=== PATIENT | male | born 1950 | race Caucasian/White ===

== ENCOUNTER → 2018-03-23 10:48 | Outpatient (CLI) | payer OTHER, SELFPAY ==
[2018-03-23 12:31] LABS: Add Manual Diff / Slide Review NO; Basophils Percent Auto 1.8 % (0-2); Eosinophils Percent Auto 2.4 % (2-4); Hematocrit 41.3 % (41-53); Lymphocytes Percent Auto 33.2 % (25-40); Mean Corpuscular Volume 91.3 fL (80-100); Monocytes Percent Auto 8.9 % (3-14); Neutrophils Absolute Auto 2600 /uL (3000-5900); Neutrophils Percent Auto 53.7 % (50-75); Platelet Count 234 X10^3/uL (150-400); Red Blood Cell Count 4.53 X10^6/uL (4.5-5.9); Red Cell Distribution Width 13.5 % (11.6-14.8); White Blood Cell Count 4.8 X10^3/uL (4.5-11.0)
[2018-03-23 12:55] LABS: Alanine Aminotransferase 22 IU/L (21-72); Albumin 4.1 g/dL (3.5-5.0); Albumin Globulin Ratio 1.4 (1.0-2.8); Alkaline Phosphatase 73 U/L (38-126); Aspartate Aminotransferase 25 IU/L (17-59); BUN Creatinine Ratio 15.6 (6-22); Bilirubin Total 0.8 mg/dL (0.2-1.3); Blood Urea Nitrogen 14 mg/dL (9-20); Calcium 8.8 mg/dL (8.4-10.2); Carbon Dioxide 30 mmol/L (22-32); Chloride 104 mmol/L (98-107); Cholesterol 192 mg/dL (140-199); Estimated Glomerular Filt Rate > 60.0 mL/min (>60); Globulin 2.9 g/dL (1.7-4.1); Glucose 89 mg/dL (80-110); HDL Cholesterol 54 mg/dL (40-60); HEMOLYSIS < 15 (0-50); LDL Cholesterol Calculated 110 mg/dL (<100); Potassium 4.2 mmol/L (3.4-5.1); Sodium 140 mmol/L (137-145); Triglycerides 139 mg/dL (35-150)
[2018-03-23 13:28] LABS: Thyroid Stimulating Hormone 2.52 uIU/mL (0.47-4.68)
== END ==
PROVIDERS: PCP Internal Medicine; Visit Provider Internal Medicine
DX: E78.5 Hyperlipidemia, unspecified (principal)
CPT/HCPCS: 36415; 80053; 80061; 84443; 85025

== ENCOUNTER → 2018-12-10 08:56 | Outpatient (CLI) | payer OTHER, SELFPAY ==
[2018-12-12 14:06] LABS: ANA Screen, IFA Negative (Negative)
== END ==
PROVIDERS: Family Provider Student in an Organized Health Care Education/Training Program; PCP Student in an Organized Health Care Education/Training Program; Visit Provider Physician Assistant
DX: R21 Rash and other nonspecific skin eruption (principal)
CPT/HCPCS: 36415; 86038

== ENCOUNTER → 2020-05-15 13:24 | Outpatient (CLI) | payer OTHER, SELFPAY ==
[2020-05-16 19:19] LABS: COVID19 Sendout Not Detected (Not Detect)
== END ==
PROVIDERS: PCP Student in an Organized Health Care Education/Training Program; Visit Provider Physician Assistant
DX: Z11.59 Encounter for screening for other viral diseases (principal)
CPT/HCPCS: 87635

== ENCOUNTER 2020-05-18 09:28 | Day surgery (SDC) | payer OTHER, SELFPAY ==
--- NOTE | 2020-05-18 | PATH_ITS ---
[facility] Accession Number: [id number] . 01 Material submitted: . colon - POLYP AT 70 CM . 01 Clinical history: . SDC . 02 Diagnosis: Colon Polyp at 70 cm, Biopsy: Tubular adenoma. MRV 05/22/2020 1111 Local . 02 Electronically signed: . Jean Pierre Farrell MD, PhD, Pathologist NPI- [id number] . 01 Gross description: . POLYP AT 70 CM: Received in formalin is 1 fragment(s) of monae, soft tissue measuring 0.4 x 0.3 x 0.3 cm submitted entirely in 1 cassette(s) /IRA 05/21/2020 1934 Local . 02 Pathologist provided ICD-10: D12.6 . 02 CPT . 039758 Performed at: 01 [facility] [address] [id number] MD Dougie Reza MD Phone: [phone] Performed at: 02 [facility] [address] [place], [place] [id number] MD Malissa Suarez MD Phone: [phone]
[2020-05-18 09:48] VITALS: BP 136/66; PULSE 60; RESP 16; TEMP 36.2; O2SAT 99; BMI 28.1
[2020-05-18] MEDS: SODIUM CHLORIDE 0.9% 1,000 ML 200 ML IV (09:56)
--- NOTE | 2020-05-18 10:05 | PM.HP.1 ---
History of Present Illness History of Present Illness Date Patient Seen: 05/18/20 Time Patient Seen: 10:05 Chief complaint: SDC Narrative: This is a 69-year-old man here for surveillance colonoscopy. He had a colonoscopy 6 years ago in which a tubular adenoma was found, he was recommended to have a follow-up colonoscopy 5 years later. Since then he has not had any new symptoms of blood in the stool, melena, hematochezia, unexplained abdominal pain, unexplained weight loss. He did recently have a prostatectomy performed robotically for prostate cancer. He says he has recovered well from that and has no residual symptoms or concerns. He says he is overall very healthy, and is have any heart lung or kidney condition. ROS: Positive for GERD/reflux symptoms. Thirteen system review is otherwise negative other than as mentioned below and in HPI. PE: GENERAL: Well groomed and cooperative. Appears stated age. Answers questions promptly and appropriately. Vital signs noted. HENT: Normocephalic, atraumatic. Hearing intact. EYES: Conjunctiva pink, sclera white, no periorbital swelling. CARDIOVASCULAR: Regular rate. No pedal edema. RESPIRATORY: Non-tachypneic, breathing comfortably on room air. GASTROINTESTINAL: Abdomen soft and non-distended GENITALURINARY: No flank tenderness. MUSCULOSKELETAL: Equal tone and mass bilaterally. SKIN: Warm, dry, soft, appropriate color for ethnicity. No other lesions, rashes, or wounds. NEURO: Alert and Oriented X 3. No gross sensory deficits, or cognitive issues. PSYCH: Appropriate affect and mood. Patient History Medical History Chicken pox (Resolved ~1955) Elevated PSA (Chronic) Measles (Resolved ~1955) Musculoskeletal pain (Chronic) Pityriasis rubra pilaris (Chronic) Skin cancer (Chronic) Surgical History Anesthesia (Resolved) Status post cholecystectomy (~1984) Status post hernia repair (~2014) Status post tonsillectomy and adenoidectomy (~1955) Family & Social History Family History Mother Cancer Sister Age: 65 Bladder cancer Sister Age: 70 Autoimmune disorder Social History: household members spouse Tobacco & Substance use: Tobacco type cigarettes,pipe Smoking Status Former smoker alcohol intake current alcohol intake frequency 0-2 drinks per day Substance Use Type does not use Meds Home Medications and Allergies Home Medications Medication Instructions Recorded Confirmed Type No Known Home Medications 05/18/20 05/18/20 History Allergies Allergy/AdvReac Type Severity Reaction Status Date / Time bee venom protein (honey bee) Allergy Mild Swelling Verified 05/18/20 09:44 No Known Allergies Allergy Uncoded 05/18/20 09:44 Exam Vital Signs (past 8 hours): - 05/18/20 09:48 Temperature 97.2 F L Pulse Rate 60 Respiratory Rate 16 Blood Pressure 136/66 Pulse Oximetry 99 Oxygen Delivery Method Room Air Assessment & Plan Assessment and plan (1) Personal history of colonic polyps: Status: Acute Assessment & Plan narrative: Risks and benefits of screening colonoscopy and possible polypectomy were discussed with the patient including risk of bleeding, perforation, need for additional procedures, risks of anesthesia. The patient desires to proceed with the colonoscopy procedure. COVID-19 COVID-19 status: Negative Result date/Date tested (Pos, Neg/Pending): 05/15/20 Time Spent With Patient Time with patient: 15-24 minutes Quality VTE Deep Vein Thrombosis/Pulmonary Embolism Present on Admission: No
--- NOTE | 2020-05-18 10:07 | P.OP.ENDO_ITS ---
Operative Date/Time/Diagnoses Date of procedure: 05/18/20 Time of procedure: 10:07 Pre-op diagnosis: Personal history of colon polyps Post-op diagnosis: other (Single polyp at 70 cm) Procedure & Clinicians Study performed: Colonoscopy Polypectomy with cold snare Procedural sedation performed by the endoscopist Same procedure as scheduled: Yes Indications: Personal history of colon polyps, here for surveillance colonoscopy Surgeon: Miryam Dominguez Procedure Notes SCOAP/Timeout: Performed Procedure in detail: The patient was brought to the room and placed in left lateral decubitus position with all bony prominences padded. A time-out was performed and then the patient was given procedural sedation starting with 4 mg of Versed and 100 mcg of fentanyl. Total of 6 mg of Versed and 150 micro g of fentanyl were given for the entire procedure. Vitals were monitored throughout the procedure and remained stable. Once adequately sedated, the procedure was begun. A rectal exam was performed revealing no abnormalities. The colonoscope was then introduced to the rectum and advanced to the cecum in the usual fashion. The cecum was identified by the appendiceal orifice, the mucosal tri- fold, and the ileocecal valve. The scope was then retracted while rotating side to side and examining each mucosal fold. A 1 cm polyp was found at 70 cm in the ascending colon. It was removed completely with cold snare, and retrieved for pathology. At the conclusion of the procedure retroflexion was performed and small grade 1-2 internal hemorrhoids without stigmata of bleeding were seen. The scope was then withdrawn from the rectum the procedure was concluded. The patient tolerated the procedure well and was transferred to the PACU in stable condition. Scope withdrawal time: 11 Sedation minutes: 30 Findings: polyp (Single adenomatous appearing polyp at 70 cm) Specimen(s): other (Polyp) Complications: none Impression: Single adenomatous appearing polyp Post-procedure Recommendations: Colonscopy in 5 years (Two 2 history of polyps, and new polyp found on this colonoscopy) and Other recommendation (Pending pathology results) Follow up: as needed Disposition: PACU
[2020-05-18] MEDS: fentaNYL 250 MCG/5 ML INJ IV (10:31)
[2020-05-18] MEDS: MIDAZOLAM 5 MG/5 ML VIAL IV (10:33)
[2020-05-18 11:01] VITALS: BP 105/55; PULSE 63; RESP 12; TEMP 36.3; O2SAT 96
[2020-05-18 11:06] VITALS: BP 103/62; PULSE 59; RESP 16; O2SAT 96
[2020-05-18 11:12] VITALS: BP 119/59; PULSE 62; RESP 12; O2SAT 97
[2020-05-18 11:15] VITALS: BP 108/64; PULSE 64; RESP 12; O2SAT 96
== END 2020-05-18 11:24 | disposition home or self-care (01) ==
PROVIDERS: PCP Student in an Organized Health Care Education/Training Program; Referring Provider Surgery; Visit Provider Surgery
PROC: 0DJD8ZZ Inspection of Lower Intestinal Tract, Via Natural or Artificial Opening Endoscopic (ICD-10-PCS; CPT 45378; principal; 2020-05-18 10:45)
DX: Z12.11 Encounter for screening for malignant neoplasm of colon (principal); Z86.010 Personal history of colon polyps; K64.0 First degree hemorrhoids; D12.6 Benign neoplasm of colon, unspecified
CPT/HCPCS: 45385; 99152; 99153; J2250; J3010

== ENCOUNTER → 2020-09-29 08:32 | Outpatient (CLI) | payer OTHER, SELFPAY ==
[2020-09-29 09:18] LABS: COVID19 -Nasal RAPID Negative (Negative)
== END ==
PROVIDERS: PCP Student in an Organized Health Care Education/Training Program; Visit Provider Physician Assistant
DX: Z20.822 Contact with and (suspected) exposure to COVID-19 (principal)
CPT/HCPCS: 87635

== ENCOUNTER 2020-10-02 11:19 | Day surgery (SDC) | payer OTHER, SELFPAY ==
[2020-10-02] MEDS: CATARACT EYE COMPOUND (10 DROPS/SYRINGE) 3 DROPS EYE-OP (11:42)
[2020-10-02] MEDS: PROPARACAINE 0.5% OPHTH SOL 2 DROPS EYE-OP (11:42)
--- NOTE | 2020-10-02 11:54 | P.OP_ITS ---
Operative Date/Time/Diagnoses Pre-op diagnosis: Nuclear Cataract Left eye Post-op diagnosis: same Procedure & Clinicians Same procedure as scheduled: Yes Surgeon: Noe Solis Anesthesia Type: MAC +/- and Sedation Operative Notes Procedure in detail: Patient brought to the operating suite. Tetracaine drops placed in the left eye. Marking instrument was used to adeline the vertical and horizontal meridians. Patient was prepped and draped in sterile manner. Wire lid speculum was placed in the eye. Marking instrument was used to adeline 60 degree meridian. Betadine drops were placed on the eye. This was irrigated. Lidocaine jelly was placed on the eye. A paracentesis port was created with a side-port blade. 0.1 mL 1% preservative free lidocaine was injected into the anterior chamber. The anterior chamber was deepened with viscoelastic. 2.6 mm keratome was used to create a temporal clear corneal incision. The pupil was floppy and miotic. A 6.25 mm malyugin ring was used to enlarge the pupil. Cystotome and Utrata forceps were used to create continuous tear capsulorrhexis. Balanced salt solution was used to hydro dissect the nucleus. The phacoemulsi fication handpiece was inserted and the nucleus was removed using the stop and chop technique. The irrigation aspiration handpiece was inserted and the remaining cortex was removed. Anterior chamber was deepened with viscoelastic. An Hatfield [id number] intraocular lens with a power of 18.0 was injected into the capsular bag. The malyugin ring was removed. Irrigation aspiration handpiece was inserted and the remaining viscoelastic was removed. The lens was rotated to the 60 degree meridian. Incision was hydrated with balanced salt solution and found to be leak free with pressure with Weck-Claudia sponges. 0.1 mL Vigamox injected anterior chamber. 0.3 mL Kenalog 10 mg was injected subconjunctivally. Lid speculum was removed. The patient left the operating room in excellent condition. Complications: none Post-operative Condition: stable Disposition: same day surgery
--- NOTE | 2020-10-02 11:54 | PM.PREOP ---
Pre-operative Note Interval Note History & Physical reviewed/Exam performed by Physician: Yes Changes to H&P: No
[2020-10-02] MEDS: PHENYLEPHRINE/LIDOCAINE VIAL (OR) 0.2 ML EYE-OP (12:12)
[2020-10-02] MEDS: MOXIFLOXACIN INJ 5 MG/ML VIAL EYE-OP (12:12)
[2020-10-02] MEDS: TRIAMCINOLONE 50 MG/5 ML VIAL INJ (12:13)
[2020-10-02] MEDS: BALANCED SALT IRRIG SOLN NO.2 500 ML, EPINEPHrine 1 MG IRR (12:13)
[2020-10-02] MEDS: CHONDROIDTIN/SOD HYALURONATE 1.05 ML SYRINGE INTRAOCULA (12:13)
[2020-10-02] MEDS: LIDOCAINE JELLY 2% 5 ML 1 APPLIC TOP (12:14)
[2020-10-02] MEDS: TETRACAINE 0.5% OPHTH DROPS 4 ML 2 DROPS EYE-OP (12:15)
[2020-10-02 12:34] VITALS: BP 113/69; PULSE 63; RESP 16; TEMP 36.3; O2SAT 98
--- NOTE | 2020-10-02 12:50 | SUR.PHASEII ---
Pt has met criteria for discharge: VSS, denied pain or nausea, able to drink fluids without difficulty, L eye dressing C/D/I. Discharge instructions discussed with pt, all questions answered. Transported via W/C to private vehicle.
== END 2020-10-02 12:50 | disposition home or self-care (01) ==
PROVIDERS: PCP Student in an Organized Health Care Education/Training Program; Referring Provider Ophthalmology; Visit Provider Ophthalmology
PROC: (CPT 66984; principal; 2020-10-02 13:15)
DX: H25.12 Age-related nuclear cataract, left eye (principal)
CPT/HCPCS: 66984; J0171; J2250; J3301; V2787

== ENCOUNTER → 2020-10-15 13:35 | Outpatient (CLI) | payer OTHER, SELFPAY ==
[2020-10-15 14:12] LABS: COVID19 -Nasal RAPID Negative (Negative)
== END ==
PROVIDERS: PCP Student in an Organized Health Care Education/Training Program; Visit Provider Nurse Practitioner
DX: Z20.822 Contact with and (suspected) exposure to COVID-19 (principal); Z01.812 Encounter for preprocedural laboratory examination
CPT/HCPCS: 87635

== ENCOUNTER 2020-10-16 10:22 | Day surgery (SDC) | payer OTHER, SELFPAY ==
[2020-10-16] MEDS: PROPARACAINE 0.5% OPHTH SOL 2 DROPS EYE-OP (11:00)
[2020-10-16 11:14] VITALS: BP 127/66; PULSE 69; RESP 12; TEMP 36.2; O2SAT 99
[2020-10-16] MEDS: CATARACT EYE COMPOUND (10 DROPS/SYRINGE) 3 DROPS EYE-OP (11:18)
--- NOTE | 2020-10-16 12:03 | PM.PREOP ---
Pre-operative Note Interval Note History & Physical reviewed/Exam performed by Physician: Yes Changes to H&P: No
--- NOTE | 2020-10-16 12:03 | PM.OP.1 ---
Operative Date/Time/Diagnoses Pre-op diagnosis: Nuclear cataract right eye Procedure & Clinicians Procedure: Cataract Surgery Same procedure as scheduled: Yes Surgeon: Noe Solis Anesthesia Type: MAC +/- and Sedation Operative Notes Procedure in detail: Patient brought to the operating suite. Tetracaine drops placed in the right eye. Marking instrument was used to adeline the vertical and horizontal meridians. Patient was prepped and draped in sterile manner. Wire lid speculum was placed in the eye. Marking instrument was used to adeline the 125 degree meridian. Betadine drops were placed on the eye. This was irrigated. Lidocaine jelly was placed on the eye. A paracentesis port was created with a side-port blade. 0.1 mL 1% preservative free lidocaine was injected into the anterior chamber. The anterior chamber was deepened with viscoelastic. 2.6 mm keratome was used to create a temporal clear corneal incision. The pupil was floppy and miotic. A 6.25 mm malyugin ring was inserted to enlarge the pupil. Cystotome and Utrata forceps were used to create continuous tear capsulorrhexis. Balanced salt solution was used to hydro dissect the nucleus. The phacoemulsification handpiece was inserted and the nucleus was removed using the stop and chop technique. The irrigation aspiration handpiece was inserted and the remaining cortex was removed. Anterior chamber was deepened with viscoelastic. An Hatfield [id number] intraocular lens with a power of 19.5 was injected into the capsular bag. Irrigation aspiration handpiece was inserted and the remaining viscoelastic was removed. The malyugin ring was removed. The lens was rotated to the 125 degree meridian. Incision was hydrated with balanced salt solution and found to be leak free with pressure with Weck-Claudia sponges. 0.1 mL Vigamox injected anterior chamber. 0.3 mL Kenalog 10 mg was injected subconjunctivally. Lid speculum was removed. The patient left the operating room in excellent condition. Complications: none Post-operative Condition: stable Disposition: same day surgery
[2020-10-16] MEDS: CHONDROIDTIN/SOD HYALURONATE 1.05 ML SYRINGE INTRAOCULA (12:21)
[2020-10-16] MEDS: LIDOCAINE JELLY 2% 5 ML 1 APPLIC TOP (12:21)
[2020-10-16] MEDS: TETRACAINE 0.5% OPHTH DROPS 4 ML 2 DROPS EYE-OP (12:22)
[2020-10-16] MEDS: MOXIFLOXACIN INJ 5 MG/ML VIAL EYE-OP (12:22)
[2020-10-16] MEDS: PHENYLEPHRINE/LIDOCAINE VIAL (OR) 0.2 ML EYE-OP (12:22)
[2020-10-16] MEDS: TRIAMCINOLONE 50 MG/5 ML VIAL INJ (12:22)
[2020-10-16] MEDS: BALANCED SALT IRRIG SOLN NO.2 500 ML, EPINEPHrine 1 MG IRR (12:23)
[2020-10-16 12:40] VITALS: BP 114/62; PULSE 64; RESP 16; TEMP 36.5; O2SAT 98
== END 2020-10-16 13:00 | disposition home or self-care (01) ==
PROVIDERS: PCP Student in an Organized Health Care Education/Training Program; Referring Provider Ophthalmology; Visit Provider Ophthalmology
PROC: (CPT 66984; principal; 2020-10-16 12:45)
DX: H25.11 Age-related nuclear cataract, right eye (principal)
CPT/HCPCS: 66984; J0171; J2250; J3010; J3301; V2787

== ENCOUNTER → 2022-09-10 12:29 | Outpatient (CLI) | payer OTHER, SELFPAY ==
--- NOTE | 2022-09-10 12:30 | DI.CT.S_ITS ---
PROCEDURE: CT HEAD/BRAIN WO CON INDICATIONS: Possible L sinus abscess; H/o nearby dental complication TECHNIQUE: Noncontrast 4.5 mm thick angled axial sections acquired from the foramen magnum to the vertex, with coronal and sagittal reformats. For radiation dose reduction, the following was used: automated exposure control, adjustment of mA and/or kV according to patient size. COMPARISON: [facility], CT, CT HEAD WITHOUT CONTRAST, 05/31/2019, 12:04. FINDINGS: Image quality: Excellent. CSF spaces: Basal cisterns are patent. No extra-axial fluid collections. The ventricles are symmetric in size and shape. Brain: No intracranial bleeds or masses. There is cerebral volume loss for age, with resultant ventricular and sulcal prominence. There are periventricular and deep white matter chronic small vessel ischemic changes. There is intracranial internal carotid artery atherosclerosis. Skull and face: Calvarium and visualized facial bones appear intact, without suspicious lesions. Sinuses: Visualized sinuses and mastoids are clear. IMPRESSION: No significant abnormality can be seen within the visualized paranasal sinuses on this standard protocol noncontrast head CT. In this patient with this given history, please consider a dedicated maxillofacial CT with IV contrast for further evaluation. Dictated by: Christian Vasques M.D. on 09/10/2022 at 12:34 Approved by: Christian Vasques M.D. on 09/10/2022 at 12:35
== END ==
PROVIDERS: PCP Student in an Organized Health Care Education/Training Program; Referring Provider Student in an Organized Health Care Education/Training Program; Visit Provider Student in an Organized Health Care Education/Training Program
DX: J32.1 Chronic frontal sinusitis (principal); K04.7 Periapical abscess without sinus
CPT/HCPCS: 70450

== ENCOUNTER → 2022-09-16 13:41 | Outpatient (CLI) | payer OTHER, SELFPAY ==
[2022-09-16 14:34] LABS: BUN Creatinine Ratio 18.7 (6-22); Blood Urea Nitrogen 17 mg/dL (9-20); Estimated Glomerular Filt Rate > 60 mL/min (>60)
--- NOTE | 2022-09-16 15:37 | DI.CT.S_ITS ---
PROCEDURE: CT SINUS W CON INDICATIONS: Persistent sinusitis, but normal noncontrast imaging TECHNIQUE: After the administration of intravenous contrast, 3.0 mm axial images acquired from the frontal sinuses to the mid-sella, with coronal and sagittal reformats. For radiation dose reduction, the following was used: automated exposure control, adjustment of mA and/or kV according to patient size. COMPARISON: [facility], CT, CT HEAD/BRAIN WO CON, 09/10/2022, 12:51. [facility], CT, CT HEAD WITHOUT CONTRAST, 05/31/2019, 12:04. FINDINGS: Image quality: Excellent. Maxillary Sinuses: No bony remodeling or destruction. Sinuses are clear. Ethmoid Air Cells: No bony remodeling or destruction. Sinuses are clear. Sphenoid Sinuses: No bony remodeling or destruction. Sinuses are clear. Frontal Sinuses: No bony remodeling or destruction. Sinuses are clear. Ostiomeatal Complexes: Ostiomeatal complexes are patent. No Ashley cells. Miscellaneous: Visualized intra-orbital contents are normal. No chava bullosa. There is minimal S shaped nasal septal deviation. No quan dental abscess is identified. No significant periapical lucency can be seen. IMPRESSION: No significant active paranasal sinus disease is seen. No focal fluid collections are seen to suggest abscess. There is of abnormal enhancement can be seen. No quan dental abscess is seen. Dictated by: Christian Vasques M.D. on 09/16/2022 at 15:20 Approved by: Christian Vasques M.D. on 09/16/2022 at 15:23
== END ==
PROVIDERS: PCP Student in an Organized Health Care Education/Training Program; Referring Provider Student in an Organized Health Care Education/Training Program; Visit Provider Student in an Organized Health Care Education/Training Program
DX: J32.8 Other chronic sinusitis (principal); N14.11 Contrast-induced nephropathy; T50.8X5A Adverse effect of diagnostic agents, initial encounter
CPT/HCPCS: 36415; 70487; 82565; 84520

== ENCOUNTER → 2023-01-22 11:51 | Outpatient (CLI) | payer OTHER, SELFPAY ==
[2023-01-22 12:36] LABS: Add Manual Diff / Slide Review NO; Basophils Absolute Auto 100 /uL (0-100); Basophils Percent Auto 1.3 % (0-2); Eosinophils Absolute Auto 100 /uL (0-450); Eosinophils Percent Auto 2.1 % (2-4); Hematocrit 43.7 % (41-53); Hemoglobin 14.8 g/dL (13.5-17.5); Lymphocytes Absolute Auto 1400 /uL (1100-4500); Lymphocytes Percent Auto 30.2 % (25-40); Mean Corpuscular HGB Conc 33.9 % (30-36); Mean Corpuscular Hemoglobin 31.2 PG (26-34); Mean Corpuscular Volume 92.1 fL (80-100); Monocytes Absolute Auto 500 /uL (0-900); Monocytes Percent Auto 10.1 % (3-14); Neutrophils Absolute Auto 2700 /uL (1500-7000); Neutrophils Percent Auto 56.3 % (50-75); Platelet Count 216 X10^3/uL (150-400); Red Blood Cell Count 4.74 X10^6/uL (4.5-5.9); Red Cell Distribution Width 13.3 % (11.6-14.8); White Blood Cell Count 4.8 X10^3/uL (4.5-11.0)
[2023-01-22 12:47] LABS: Appearance Urine UA CLEAR; Bilirubin Urine UA NEGATIVE (NEGATIVE); Color Urine UA YELLOW; Glucose Urine UA NEGATIVE (Negative); Ketones Urine UA NEGATIVE (NEGATIVE); Leukocyte Esterase Urine UA NEGATIVE (NEGATIVE); Nitrite Urine UA NEGATIVE (Negative); Occult Blood Urine UA NEGATIVE (Negative); Protein Urine UA NEGATIVE (Negative); Specific Gravity Urine UA >=1.030 (1.000-1.035); Urobilinogen Urine UA 0.2 E.U./dL (0.2)
[2023-01-22 13:07] LABS: Bacteria Urine None Seen; Culture Indicated Urine Cult Not Indicated; RBC Urine None Seen (0-5/HPF); Squamous Epithelial Cell Urine None Seen (0-5/HPF); WBC Urine None Seen (0-5/HPF)
[2023-01-22 13:16] LABS: Alanine Aminotransferase 19 IU/L (<50); Albumin 3.9 g/dL (3.5-5.0); Albumin Globulin Ratio 1.3 (1.0-2.8); Alkaline Phosphatase 106 U/L (38-126); Aspartate Aminotransferase 24 IU/L (17-59); BUN Creatinine Ratio 14.3 (6-22); Bilirubin Total 0.9 mg/dL (0.2-1.3); Blood Urea Nitrogen 14 mg/dL (9-20); Calcium 9.1 mg/dL (8.4-10.2); Carbon Dioxide 29 mmol/L (22-32); Chloride 104 mmol/L (98-107); Cholesterol 185 mg/dL (140-199); Estimated Glomerular Filt Rate > 60 mL/min (>60); Globulin 2.9 g/dL (1.7-4.1); Glucose 90 mg/dL (80-110); HDL Cholesterol 57 mg/dL (40-60); HEMOLYSIS < 15 (0-50); LDL Cholesterol Calculated 107 mg/dL (<100); Potassium 4.6 mmol/L (3.4-5.1); Sodium 138 mmol/L (137-145); Total Protein 6.8 g/dL (6.3-8.2); Triglycerides 107 mg/dL (35-150)
[2023-01-22 13:45] LABS: TSH w/ Reflex to FT4 2.66 uIU/mL (0.47-4.68)
[2023-01-23 06:47] LABS: PSA Ultrasensitive <0.006 ng/mL (0.000-4.000)
[2023-01-23 16:46] LABS: Fecal Immunochemical Test Negative (Negative)
== END ==
PROVIDERS: PCP Pediatrics; Referring Provider Pediatrics; Visit Provider Pediatrics
DX: E78.5 Hyperlipidemia, unspecified (principal); R01.1 Cardiac murmur, unspecified; Z00.00 Encounter for general adult medical examination without abnormal findings; R32 Unspecified urinary incontinence; Z12.11 Encounter for screening for malignant neoplasm of colon
CPT/HCPCS: 36415; 80053; 80061; 81001; 82274; 84153; 84443; 85025

== ENCOUNTER → 2023-02-11 07:36 | Outpatient (CLI) | payer OTHER, SELFPAY ==
--- NOTE | 2023-02-11 07:37 | DI.ECHO.S_ITS ---
[facility] [facility] +---------+ : : [address] : : : : [id number] : : : : Phone: [phone]+ Echocardiogram Report + + :Name: NANCY JIMENEZ Study Date: 02/11/2023 Height: 71 in : :[facility] ReadingLocation: Weight: 205 lb : : Gender: Male BSA: 2.1 m2 : :: 1950 Age: 72 yrs BP: 128/65 mmHg: :Reason For Study: MURMUR : :Ordering Physician: JOSEPH, : :MARIAN Khan Performed By: Mónica Tam : :Referring: MARIAN RUIZ : + + Interpretation Summary The ejection fraction is estimated to be 50-55%. The left atrium is moderately dilated. The right ventricle is normal in size and function. The right atrium is mildly dilated. There is prolapse of the posterior mitral valve leaflet(s). There is moderate mitral regurgitation. There is mild tricuspid regurgitation. The right ventricular systolic pressure is estimated to be at least 22 mmHg based on an estimated right atrial pressure of 3 mm Hg. Procedure: A two-dimensional transthoracic echocardiogram with color flow and Doppler was performed. The study quality was technically adequate. There is no prior echocardiogram noted for this patient. The patient was in sinus rhythm with heart rates between 58-62 bpm during the exam. Left Ventricle: The left ventricle is normal in size and wall thickness. The ejection fraction is estimated to be 50-55%. Diastolic function could not be accurately assessed due to confounding valvular disease. Right Ventricle: The right ventricle is normal in size and function. Atria: The left atrium is moderately dilated. The right atrium is mildly dilated. There is no Doppler evidence for an interatrial shunt. Mitral Valve: The mitral valve leaflets appear borderline thickened, but open well. There is prolapse of the posterior mitral valve leaflet(s). There is moderate mitral regurgitation. Aortic Valve: The aortic valve is trileaflet. The aortic valve opens well. There is no aortic valve stenosis. No aortic regurgitation is present. Tricuspid Valve: The tricuspid valve is normal in structure and function. There is mild tricuspid regurgitation. The right ventricular systolic pressure is estimated to be at least 22 mmHg based on an estimated right atrial pressure of 3 mm Hg. Pulmonic Valve: The pulmonic valve leaflets are thin and pliable; valve motion is normal. There is mild pulmonic regurgitation. Great Vessels: The aortic root is normal size. The dimensions of the ascending aorta are normal. The IVC is of normal diameter and collapses greater than 50% with a sniff. This suggests a low right atrial pressure of 3 mm Hg. Pericardium/ Pleura There is no pericardial effusion. There is no pleural effusion. MMode/2D Measurements & Calculations LVIDd: 5.7 cm LVOT diam: 2.2 cm LVIDs: 3.9 cm Ao root diam: 3.7 cm FS: 31.1 % asc Aorta Diam: 3.5 cm IVSd: 1.0 cm Ao Arch Diam (Prox Trans): 3.4 cm LVPWd: 0.77 cm LV wesley. diameter/BSA (cm/m^2): 2.7 LV sys. diameter/BSA (cm/m^2): 1.8 LA A2 area: 26.9 cm2 RA long axis: 6.2 cm LA A4 area: 22.3 cm2 RA area: 23.0 cm2 LA length (vol): 5.6 cm RA vol: 72.2 ml LA vol: 90.5 ml RA : 33.9 ml/m2 LA vol index: 42.5 ml/m2 IVC diam: 1.8 cm RVD1 (basal): 4.0 cm RVD2 (mid): 3.2 cm TAPSE: 2.0 cm Doppler Measurements & Calculations Ao V2 max: 113.0 cm/sec LVOT Max Aleks: 91.0 cm/sec Ao V2 mean: 82.0 cm/sec LV V1 max P.3 mmHg Ao max P.1 mmHg LV V1 VTI: 17.4 cm Ao mean P.9 mmHg YELENA(I,D): 2.7 cm2 Ao V2 VTI: 24.0 cm YELENA(V,D): 3.0 cm2 sev ratio: 0.72 YELENA indexed to BSA (cm^2/m^2): 1.3 MV E max aleks: 91.7 cm/sec TR max aleks: 220.0 cm/sec MV A max aleks: 82.5 cm/sec TR max P.4 mmHg MV E/A: 1.1 PA V2 max: 89.0 cm/sec Med Peak E' Aleks: 8.2 cm/sec PA V2 mean: 59.1 cm/sec E/E' med: 11.2 PA mean P.6 mmHg Lat Peak E' Aleks: 9.9 cm/sec PA pr(Accel): 32.8 mmHg E/E' lat: 9.3 E/e' average: 10.3 MV dec time: 0.27 sec MR ERO: 0.35 cm2 MR PISA: 5.3 cm2 SV(LVOT): 65.1 ml MR flow rate: 194.8 cm3/sec MR PISA radius: 0.92 cm Reading Physician:11:46 AM
== END ==
PROVIDERS: PCP Pediatrics; Referring Provider Pediatrics; Visit Provider Pediatrics
DX: I08.1 Rheumatic disorders of both mitral and tricuspid valves (principal); R01.1 Cardiac murmur, unspecified; E78.5 Hyperlipidemia, unspecified; M16.11 Unilateral primary osteoarthritis, right hip
CPT/HCPCS: 93306

== ENCOUNTER → 2023-02-23 07:39 | Outpatient (CLI) | payer OTHER, SELFPAY ==
--- NOTE | 2023-02-23 07:40 | DI.CT.S_ITS ---
PROCEDURE: CT ABDOMEN PELVIS WO CON INDICATIONS: assess bladder sling with sxs of dysfuction and ? hernia TECHNIQUE: Axial sections were acquired from the lung bases to the pubic symphysis. Coronal and sagittal reformats were performed. For radiation dose reduction, the following was used: automated exposure control, adjustment of mA and/or kV according to patient size. COMPARISON: None. FINDINGS: Image quality: Excellent. Lung bases: Unremarkable. Heart: Enlarged. URINARY: Right Kidney: No stones or hydronephrosis. Right Ureter: No hydroureter. Left Kidney: No stones or hydronephrosis. Left Ureter: No hydroureter. Bladder: Urinary bladder is under distended. No cystocele. ABDOMEN: Liver: Scattered subcentimeter hypoattenuating lesions, too small to characterize by CT but probably small cysts. Gallbladder: Absent. Biliary ducts: Unremarkable. Pancreas: Unremarkable. Spleen: Unremarkable. Adrenal Glands: Unremarkable. Stomach and Bowel: Stomach, small bowel loops, and colon are unremarkable. Peritoneum: No abnormal intraperitoneal fluid. No free air. Ventral Wall: Small, fat containing umbilical hernia. Abdominal Nodes: No enlarged retroperitoneal or mesenteric lymph nodes. Vessels: Aorta and inferior vena cava are normal in size. PELVIS: Pelvic Organs: Unremarkable. Pelvic Nodes: Unremarkable. Miscellaneous: Bilateral inguinal hernia repair. Trace fat within the inguinal canal, which does not originate from the peritoneum. Bones: Unremarkable. IMPRESSION: The bladder is under distended. No evidence of cystocele. Bilateral inguinal hernia repair. Tiny fat containing umbilical hernia. Dictated by: Kamari Harris M.D. on 02/23/2023 at 8:38 Approved by: Kamari Harris M.D. on 02/23/2023 at 8:42
== END ==
PROVIDERS: PCP Pediatrics; Referring Provider Pediatrics; Visit Provider Pediatrics
DX: M16.11 Unilateral primary osteoarthritis, right hip (principal); R32 Unspecified urinary incontinence; Z90.49 Acquired absence of other specified parts of digestive tract
CPT/HCPCS: 74176

== ENCOUNTER → 2023-07-30 08:27 | Outpatient (CLI) | payer OTHER, SELFPAY ==
--- NOTE | 2023-07-30 08:30 | DI.RAD.S_ITS ---
PROCEDURE: XR HIP W PEL IF DONE RT 2V INDICATIONS: Osteo arithritis of RT hip TECHNIQUE: AP pelvis with lateral view(s) of the right hip(s). COMPARISON: [facility], , [id number] W PEL IF PERFORMED, 06/30/2017, 9:13. FINDINGS: Bones: No fractures or dislocations. Pelvic ring appears intact. No suspicious bony lesions. Mild bilateral hip joint space narrowing and periarticular osteophyte formation. Soft tissues: The visualized bowel gas pattern is normal. No suspicious soft tissue calcifications. IMPRESSION: Osteoarthritis. No acute fracture. No osseous lesion. If symptoms and/or clinical suspicion for pathology persist, further assessment with repeat, or advanced imaging (e.g., CT, MRI, or bone scan) may be helpful for further assessment. Dictated by: Kashmir Durbin M.D. on 07/30/2023 at 11:38 Approved by: Kashmir Durbin M.D. on 07/30/2023 at 11:39
== END ==
PROVIDERS: PCP Family Medicine; Referring Provider Family Medicine; Visit Provider Family Medicine
DX: M16.11 Unilateral primary osteoarthritis, right hip (principal)
CPT/HCPCS: 73502

== ENCOUNTER 2023-11-19 11:15 | Outpatient (RCR) | payer OTHER, SELFPAY ==
--- NOTE | 2023-11-09 17:31 | PT.OIE ---
Current Diagnoses Unilateral primary osteoarthritis, right hip (11/09/23) Pain in right hip (11/09/23) Stiffness of right hip, not elsewhere classified (11/09/23) Past Medical History (Last Reviewed 01/20/23 @ 09:12 by Dao Garcia MD) Atypical mole of neck Benign prostatic hyperplasia Chicken pox (~1955) Elevated PSA Measles (~1955) Murmur, cardiac Musculoskeletal pain Pityriasis rubra pilaris Preventative health care Skin cancer Urinary incontinence Past Surgical History (Last Reviewed 01/20/23 @ 09:12 by Dao Garcia MD) Anesthesia Status post cholecystectomy (~1984) Status post hernia repair (~2014) Status post tonsillectomy and adenoidectomy (~1955) Visit Care Team Role Provider Type Lakshmi Copeland DO Attending Provider Physician Family Provider Primary Care Provider Referring Provider Specialty: Family Practice Address: [address] [place] [address], [address], [facility] Email: [email or web address] Physical Therapy Initial Evaluation PT-OP-A Visit Information Start: 11/09/23 17:05 Freq: Status: Active Protocol: Document 11/09/23 11:15 DCW (Rec: 11/09/23 17:31 [facility] [id number]) Out-Patient Physical Therapy Visit Information Visit Information Visit Type Initial Evaluation Visit Start Time 11:15 Visit Stop Time 12:00 Visit Number 1 Number of PHD INTERNSHIP Visits 0 Evaluation Information Evaluation Date 11/09/23 PT-OP-B Current Condition Start: 11/09/23 17:05 Freq: Status: Active Protocol: Document 11/09/23 11:15 DCW (Rec: 11/09/23 17:31 [facility] [id number]) Current Condition History of Current Condition Onset Date One year history Current Complaints Right hip pain with activity, pivoting on R leg History of Current Condition Pt is a 73 year old male presenting with a one year history or right hip pain. Pt reports pain largely comes and goes, worsened recently after shoveling snow. In the past, has hurt more after mowing grass or pivoting on right leg . Pain comes and goes, when flared-up, gets to the point that I have difficulty taking a step. It just feels like it could give out, like theres no support. Does feel right hip is weaker, started going to the gym in May, discovered resisted adduction really bothers it. Treatment Goals Patient/Caregiver Goals Decrease frequency/severity of flare-ups PT-OP-C Subjective Start: 11/09/23 17:05 Freq: Status: Active Protocol: Document 11/09/23 11:15 DCW (Rec: 11/09/23 17:31 DCW [id number]) OP-PT Subjective Patient Comments Patient Comments It's actually doing pretty well right now. Patient Questionnaires Lower Extremity Functional Scale LEFS Score 71/80 = 88.75% OP-PT Pain Assessment Location Right Anterior Medial Hip Intensity 4 Scale Used Numeric (0 - 10) Description Burning,Pinching,Sharp PT-OP-F Manual Assessment Start: 11/09/23 17:05 Freq: Status: Active Protocol: Document 11/09/23 11:15 DCW (Rec: 11/09/23 17:31 DCW [id number]) Manual Assessments Joint Mobility Assessment Joint Mobility Assessment Significant increase in pain with passive rotation during compression of the joint PT-OP-L Special Tests Start: 11/09/23 17:05 Freq: Status: Active Protocol: Document 11/09/23 11:15 DCW (Rec: 11/09/23 17:31 DCW [id number]) Special Tests Hip Special Tests Aba Test Results Positive R hip flexor tightness Straight Leg Raise Test Results Negative Scour Test Test Results Positive R MANNY Test Results Negative PT-OP-M Strength Start: 11/09/23 17:05 Freq: Status: Active Protocol: Document 11/09/23 11:15 DCW (Rec: 11/09/23 17:31 DCW [id number]) Hip Strength Hip Manual Muscle Testing Right Flexion (L2) 4 Good Extension (S1) 4 Good Abduction 4- Good- Adduction 4- Good- External Rotation 4+ Good+ Internal Rotation 4+ Good+ Left Flexion (L2) 5 Normal Extension (S1) 5 Normal Abduction 5 Normal Adduction 5 Normal External Rotation 5 Normal Internal Rotation 5 Normal Knee Strength Knee Manual Muscle Testing Right Flexion (S2) 5 Normal Extension (L3) 5 Normal Left Flexion (S2) 5 Normal Extension (L3) 5 Normal PT-OP-Q Treatments Start: 11/09/23 17:05 Freq: Status: Active Protocol: Document 11/09/23 11:15 DCW (Rec: 11/09/23 17:31 DCW [id number]) Therapeutic Exercises Supine Exercises Bridging Supine Exercise Name Bridging /c adductor ball squeeze Sidelying Exercises Hip Adduction Sidelying Exercise Name Hip Adduction Side right Standing Exercises Hip Extension Standing Exercise Name Hip Extension Side bilateral Resistance Lv 3 Hip Abduction Standing Exercise Name Hip Abduction Side bilateral Resistance Lv 3 Other Exercises Wall Squat Other Exercise Name Wall squat with adductor ball squeeze PT-OP-T Assessment and Plan Start: 11/09/23 17:05 Freq: Status: Active Protocol: Document 11/09/23 11:15 DCW (Rec: 11/09/23 17:31 DCW [id number]) Physical Therapy Assessment Rehab Potential Rehabilitation Potential Excellent Evaluation Complexity Number of Personal Factors/Comorbidities 0 Number of Body Systems Impaired 1-2 Clinical Presentation at Evaluation Stable Impairments Impairments Functional Activities, Functional Mobility,Pain,Soft Tissue Mobility,Strength Goals Two Impairment Severe hip pain with pivoting on planted right foot Furnace Converter Goal (LTG) Pt to demonstrate return to prior level of function by performing yard work with no instances of increased hip pain over the course of two weeks LTG Duration 01/09/24 One Impairment Pt does not have an appropriate home exercise program Short Term Goal (STG) Pt to be independent and compliant with an appropriate HEP STG Duration 12/10/23 Assessment Summary Assessment Pt presents with signs and symptoms consistent with right hip pain, potentially with involvement of right acetabular labrum. Pt's pain location of anterior hip pain into medial groin as well as sudden severe increase in pain with rotation during compression suggestive of intrajoint injury/labral involvement. Difficult to DDx without advanced imaging, but reports that pain only lasts less than one day may suggest sprain vs actual tear. Pt does exhibit right hip weakness, and notes increased pain when attempting to strengthening independently. Pt should benefit from skilled therapy focusing on improving strength and mobility of right hip in pain-free motions. If pt does not progress as expected, may eventually benefit from further advanced imaging. Physical Therapy Plan Frequency and Duration Frequency of Treatment 2x/Week Plan of Care Start Date 11/09/23 Plan of Care End Date 01/09/24 Therapeutic Interventions Therapeutic Interventions Home Exercise Program,Joint Mobilizations,Manual Therapy, Neuromuscular Re-education, Patient/Caregiver Education, Self-Care/Home Management,Soft Tissue Mobilization, Therapeutic Activities, Therapeutic Exercises Modalities Cold Pack/Ice Massage,Electric Stimulation,Hot Packs, Ultrasound Next Visit Focus/Plan Next Note Type Treatment Note Next Visit Plan Hip mobility, hip strengthening. gait training/ body mechanics
--- NOTE | 2023-11-09 17:32 | PT.OPPOC ---
Physical, Occupational & Speech Therapy At [facility] Current Diagnoses Unilateral primary osteoarthritis, right hip (11/09/23) Pain in right hip (11/09/23) Stiffness of right hip, not elsewhere classified (11/09/23) Visit Care Team Role Provider Type Lakshmi Copeland DO Attending Provider Physician Family Provider Primary Care Provider Referring Provider Specialty: [facility] Address: [address] [place] [address], [address], [facility] Email: [email or web address] Plan Of Care PT-OP-T Assessment and Plan Start: 11/09/23 17:05 Freq: Status: Active Protocol: Document 11/09/23 11:15 DCW (Rec: 11/09/23 17:31 DCW [id number]) Physical Therapy Assessment Rehab Potential Rehabilitation Potential Excellent Evaluation Complexity Number of Personal Factors/Comorbidities 0 Number of Body Systems Impaired 1-2 Clinical Presentation at Evaluation Stable Impairments Impairments Functional Activities, Functional Mobility,Pain,Soft Tissue Mobility,Strength Goals Two Impairment Severe hip pain with pivoting on planted right foot Director Of Religious Activities Goal (LTG) Pt to demonstrate return to prior level of function by performing yard work with no instances of increased hip pain over the course of two weeks LTG Duration 01/09/24 One Impairment Pt does not have an appropriate home exercise program Short Term Goal (STG) Pt to be independent and compliant with an appropriate HEP STG Duration 12/10/23 Assessment Summary Assessment Pt presents with signs and symptoms consistent with right hip pain, potentially with involvement of right acetabular labrum. Pt's pain location of anterior hip pain into medial groin as well as sudden severe increase in pain with rotation during compression suggestive of intrajoint injury/labral involvement. Difficult to DDx without advanced imaging, but reports that pain only lasts less than one day may suggest sprain vs actual tear. Pt does exhibit right hip weakness, and notes increased pain when attempting to strengthening independently. Pt should benefit from skilled therapy focusing on improving strength and mobility of right hip in pain-free motions. If pt does not progress as expected, may eventually benefit from further advanced imaging. Physical Therapy Plan Frequency and Duration Frequency of Treatment 2x/Week Plan of Care Start Date 11/09/23 Plan of Care End Date 01/09/24 Therapeutic Interventions Therapeutic Interventions Home Exercise Program,Joint Mobilizations,Manual Therapy, Neuromuscular Re-education, Patient/Caregiver Education, Self-Care/Home Management,Soft Tissue Mobilization, Therapeutic Activities, Therapeutic Exercises Modalities Cold Pack/Ice Massage,Electric Stimulation,Hot Packs, Ultrasound Next Visit Focus/Plan Next Note Type Treatment Note Next Visit Plan Hip mobility, hip strengthening. gait training/ body mechanics Plan of Care Dates Plan of Care Start Date 11/09/23 Plan of Care End Date 01/09/24 Electronically Signed by: Desean Darby, PT 11/09/23 0699 If you are in agreement with this Plan of Care, please return a signed and dated copy. I have reviewed this Plan of Care and certify that the skilled therapy services above are required to meet the patient?s needs. Physician Signature Date Printed Name and Credentials Clinical Instructor Signature Printed Name and Credentials
--- NOTE | 2023-11-12 12:00 | PT.OTN ---
Current Diagnoses Unilateral primary osteoarthritis, right hip (11/12/23) Pain in right hip (11/12/23) Stiffness of right hip, not elsewhere classified (11/12/23) Physical Therapy Treatment Note PT-OP-A Visit Information Start: 11/09/23 17:05 Freq: Status: Active Protocol: Document 11/12/23 11:15 DCW (Rec: 11/12/23 12:00 DCW [id number]) Out-Patient Physical Therapy Visit Information Visit Information Visit Type Treatment Note Visit Start Time 11:15 Visit Stop Time 12:00 Visit Number 2 Number of NURSE COLLEGE Visits 0 Evaluation Information Evaluation Date 11/09/23 PT-OP-B Current Condition Start: 11/09/23 17:05 Freq: Status: Active Protocol: Document 11/09/23 11:15 DCW (Rec: 11/09/23 17:31 DCW [id number]) Current Condition History of Current Condition Onset Date One year history Current Complaints Right hip pain with activity, pivoting on R leg History of Current Condition Pt is a 73 year old male presenting with a one year history or right hip pain. Pt reports pain largely comes and goes, worsened recently after shoveling snow. In the past, has hurt more after mowing grass or pivoting on right leg . Pain comes and goes, when flared-up, gets to the point that I have difficulty taking a step. It just feels like it could give out, like theres no support. Does feel right hip is weaker, started going to the gym in May, discovered resisted adduction really bothers it. Treatment Goals Patient/Caregiver Goals Decrease frequency/severity of flare-ups PT-OP-C Subjective Start: 11/09/23 17:05 Freq: Status: Active Protocol: Document 11/12/23 11:15 DCW (Rec: 11/12/23 12:00 DCW [id number]) OP-PT Subjective Patient Comments Patient Comments Those exercises are good. I'm feeling better, I even went to the gym yesterday. The real test will be tomorrow, I have a work green party, going to be walking around a two acre parcel. PT-OP-F Manual Assessment Start: 11/09/23 17:05 Freq: Status: Active Protocol: Document 11/09/23 11:15 DCW (Rec: 11/09/23 17:31 DCW [id number]) Manual Assessments Joint Mobility Assessment Joint Mobility Assessment Significant increase in pain with passive rotation during compression of the joint PT-OP-L Special Tests Start: 11/09/23 17:05 Freq: Status: Active Protocol: Document 11/09/23 11:15 DCW (Rec: 11/09/23 17:31 TXW [id number]) Special Tests Hip Special Tests Aba Test Results Positive R hip flexor tightness Straight Leg Raise Test Results Negative Scour Test Test Results Positive R MANNY Test Results Negative PT-OP-M Strength Start: 11/09/23 17:05 Freq: Status: Active Protocol: Document 11/09/23 11:15 DCW (Rec: 11/09/23 17:31 TXW [id number]) Hip Strength Hip Manual Muscle Testing Right Flexion (L2) 4 Good Extension (S1) 4 Good Abduction 4- Good- Adduction 4- Good- External Rotation 4+ Good+ Internal Rotation 4+ Good+ Left Flexion (L2) 5 Normal Extension (S1) 5 Normal Abduction 5 Normal Adduction 5 Normal External Rotation 5 Normal Internal Rotation 5 Normal Knee Strength Knee Manual Muscle Testing Right Flexion (S2) 5 Normal Extension (L3) 5 Normal Left Flexion (S2) 5 Normal Extension (L3) 5 Normal PT-OP-Q Treatments Start: 11/09/23 17:05 Freq: Status: Active Protocol: Document 11/12/23 11:15 DCW (Rec: 11/12/23 12:00 TXW [id number]) Cardio Equipment Bicycle (Upright) Duration (Minutes) 4 Resistance 6 Seat Position 7 Gym Equipment Shuttle Recovery Unilateral Squats Resistance 62# Shuttle Recovery Platform Stable Bilateral Squats Resistance 100# Shuttle Recovery Platform Stable Shuttle Balance Red Details WBOS, Staggered, Lateral weight shift Therapeutic Ball Bridging Exercise Details Bridging /c feet on ball Ball Size/Color Red - 55 cm Body Position Supine Therapeutic Exercises Sidelying Exercises Triple Threat Sidelying Exercise Name Combo Clam, R Clam, and Abduction Side bilateral PT-OP-T Assessment and Plan Start: 11/09/23 17:05 Freq: Status: Active Protocol: Document 11/12/23 11:15 DCW (Rec: 11/12/23 12:00 DCW [id number]) Physical Therapy Assessment Impairments Impairments Functional Activities, Functional Mobility,Pain,Soft Tissue Mobility,Strength Goals Two Impairment Severe hip pain with pivoting on planted right foot Boring Machine Operator Helper Goal (LTG) Pt to demonstrate return to prior level of function by performing yard work with no instances of increased hip pain over the course of two weeks LTG Duration 01/09/24 One Impairment Pt does not have an appropriate home exercise program Short Term Goal (STG) Pt to be independent and compliant with an appropriate HEP STG Duration 12/10/23 Assessment Summary Assessment Fantastic response to treatment today, pt very happy with additional exercises to add to HEP. Pt noted fatigue through hips, but no pain or discomfort with rotation. Pt very motivated to continue independently, will likely progress to discharge following appointments next week. Physical Therapy Plan Frequency and Duration Frequency of Treatment 2x/Week Plan of Care Start Date 11/09/23 Plan of Care End Date 01/09/24 Therapeutic Interventions Therapeutic Interventions Home Exercise Program,Joint Mobilizations,Manual Therapy, Neuromuscular Re-education, Patient/Caregiver Education, Self-Care/Home Management,Soft Tissue Mobilization, Therapeutic Activities, Therapeutic Exercises Modalities Cold Pack/Ice Massage,Electric Stimulation,Hot Packs, Ultrasound Next Visit Focus/Plan Next Note Type Treatment Note Next Visit Plan Hip mobility, hip strengthening. gait training/ body mechanics
--- NOTE | 2023-11-16 12:12 | PT.OTN ---
Current Diagnoses Unilateral primary osteoarthritis, right hip (11/16/23) Pain in right hip (11/16/23) Stiffness of right hip, not elsewhere classified (11/16/23) Physical Therapy Treatment Note PT-OP-A Visit Information Start: 11/09/23 17:05 Freq: Status: Active Protocol: Document 11/16/23 08:52 AB (Rec: 11/16/23 12:12 AB [id number]) Out-Patient Physical Therapy Visit Information Visit Information Visit Type Treatment Note Visit Note Access Code: [email or web address] Visit Start Time 11:16 Visit Stop Time 12:00 Visit Number 3 Number of SKIDDER OPERATOR Visits 1 Evaluation Information Evaluation Date 11/09/23 PT-OP-B Current Condition Start: 11/09/23 17:05 Freq: Status: Active Protocol: Document 11/09/23 11:15 DCW (Rec: 11/09/23 17:31 DCW [id number]) Current Condition History of Current Condition Onset Date One year history Current Complaints Right hip pain with activity, pivoting on R leg History of Current Condition Pt is a 73 year old male presenting with a one year history or right hip pain. Pt reports pain largely comes and goes, worsened recently after shoveling snow. In the past, has hurt more after mowing grass or pivoting on right leg . Pain comes and goes, when flared-up, gets to the point that I have difficulty taking a step. It just feels like it could give out, like theres no support. Does feel right hip is weaker, started going to the gym in May, discovered resisted adduction really bothers it. Treatment Goals Patient/Caregiver Goals Decrease frequency/severity of flare-ups PT-OP-C Subjective Start: 11/09/23 17:05 Freq: Status: Active Protocol: Document 11/16/23 08:52 AB (Rec: 11/16/23 12:12 AB [id number]) OP-PT Subjective Patient Comments Patient Comments Patient reports he participated in a 7 hour work alliance party at [employer], yard work, and cleaning windows with no increased pain post. Patient reports he gets an occasional tweek when he turn wrong about once since last . PT-OP-F Manual Assessment Start: 11/09/23 17:05 Freq: Status: Active Protocol: Document 11/09/23 11:15 DCW (Rec: 11/09/23 17:31 DCW [id number]) Manual Assessments Joint Mobility Assessment Joint Mobility Assessment Significant increase in pain with passive rotation during compression of the joint PT-OP-L Special Tests Start: 11/09/23 17:05 Freq: Status: Active Protocol: Document 11/09/23 11:15 DCW (Rec: 11/09/23 17:31 DCW [id number]) Special Tests Hip Special Tests Aba Test Results Positive R hip flexor tightness Straight Leg Raise Test Results Negative Scour Test Test Results Positive R MANNY Test Results Negative PT-OP-M Strength Start: 11/09/23 17:05 Freq: Status: Active Protocol: Document 11/09/23 11:15 DCW (Rec: 11/09/23 17:31 DCW [id number]) Hip Strength Hip Manual Muscle Testing Right Flexion (L2) 4 Good Extension (S1) 4 Good Abduction 4- Good- Adduction 4- Good- External Rotation 4+ Good+ Internal Rotation 4+ Good+ Left Flexion (L2) 5 Normal Extension (S1) 5 Normal Abduction 5 Normal Adduction 5 Normal External Rotation 5 Normal Internal Rotation 5 Normal Knee Strength Knee Manual Muscle Testing Right Flexion (S2) 5 Normal Extension (L3) 5 Normal Left Flexion (S2) 5 Normal Extension (L3) 5 Normal PT-OP-Q Treatments Start: 11/09/23 17:05 Freq: Status: Active Protocol: Document 11/16/23 08:52 AB (Rec: 11/16/23 12:12 AB [id number]) Gym Equipment Shuttle Balance Red Details Romberg and stagger stance Reps/Duration 3 min Comments eyes closed with Romberg, CGA to minimal assistance throughout Therapeutic Exercises Sidelying Exercises Triple Threat Sidelying Exercise Name Combo Clam, R Clam, and Abduction Side bilateral Reps/Minutes X10 Standing Exercises Hip Extension Standing Exercise Name Hip Extension Side bilateral Resistance Lv 4 Reps/Minutes 15 X 2 Hip Abduction Standing Exercise Name Hip Abduction Side bilateral Resistance Lv 4 Reps/Minutes 15 X 2 Other Exercises Wall Squat Other Exercise Name Wall squat with adductor ball squeeze Reps/Minutes X15 Comments Verbal cues to keep knees behind toes during squat Neuro Re-Education Treatment Balance Activities marching on blue foam cushion Details hands above raised mat Surface blue cushion Reps/Duration X12 Comments CGA without UE use Other Activities glute ed activation Details seated hip abduction with band Reps/Duration one one minute hold Comments Verbal cues Self-Care/Home Management Treatment Education Caregiver Education seated hip abd with band with one minute hold to HEP Other Education Discussed trial of every other day for HEP prior to discontinuing PT. PT-OP-T Assessment and Plan Start: 11/09/23 17:05 Freq: Status: Active Protocol: Document 11/16/23 08:52 AB (Rec: 11/16/23 12:12 AB [id number]) Physical Therapy Assessment Goals Two Impairment Severe hip pain with pivoting on planted right foot Podiatric Aide Goal (LTG) Pt to demonstrate return to prior level of function by performing yard work with no instances of increased hip pain over the course of two weeks LTG Duration 01/09/24 One Impairment Pt does not have an appropriate home exercise program Short Term Goal (STG) Pt to be independent and compliant with an appropriate HEP STG Duration 12/10/23 Assessment Summary Assessment SLS left LE 3,4,13 seconds start of session 15+ with increased trunk sway with had turns end of session. Patient reports this may be his last session. Physical Therapy Plan Frequency and Duration Frequency of Treatment 2x/Week Plan of Care Start Date 11/09/23 Plan of Care End Date 01/09/24 Next Visit Focus/Plan Next Note Type Treatment Note Next Visit Plan Hip mobility, hip strengthening. gait training/ body mechanics Possibly assess if patient continues to have no pain with HEP reduced to every other day.
--- NOTE | 2023-11-19 11:32 | PT.OTN ---
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 Pt reports pain largely comes and goes, worsened recently after shoveling snow. In the past, has hurt more after mowing grass or pivoting on right leg . Pain comes and goes, when flared-up, gets to the point that I have difficulty taking a step. It just feels like it could give out, like theres no support. Does feel right hip is weaker, started going to the gym in May, discovered resisted adduction really bothers it. Treatment Goals Patient/Caregiver Goals Decrease frequency/severity of flare-ups PT-OP-C Subjective Start: 11/09/23 17:05 Freq: Status: Active Protocol: Document 11/19/23 11:15 DCW (Rec: 11/19/23 11:32 DCW [id number]) OP-PT Subjective Patient Comments Patient Comments I know it's my last visit, I was kind of thinking about canceling, because I feel great. PT-OP-F Manual Assessment Start: 11/09/23 17:05 Freq: Status: Active Protocol: Document 11/19/23 11:15 DCW (Rec: 11/19/23 11:25 DCW [id number]) Manual Assessments Joint Mobility Assessment Joint Mobility Assessment No noted pain with compression /rotation PT-OP-L Special Tests Start: 11/09/23 17:05 Freq: Status: Active Protocol: Document 11/19/23 11:15 DCW (Rec: 11/19/23 11:25 DCW [id number]) Special Tests Hip Special Tests Aba Test Results Mild R hip flexor tightness Scour Test Test Results Negative PT-OP-M Strength Start: 11/09/23 17:05 Freq: Status: Active Protocol: Document 11/19/23 11:15 DCW (Rec: 11/19/23 11:25 DCW [id number]) Hip Strength Hip Manual Muscle Testing Right Flexion (L2) 5 Normal Extension (S1) 5 Normal Abduction 5 Normal Adduction 5 Normal External Rotation 5 Normal Internal Rotation 5 Normal PT-OP-Q Treatments Start: 11/09/23 17:05 Freq: Status: Active Protocol: Document 11/19/23 11:15 DCW (Rec: 11/19/23 11:32 DCW [id number]) Manual Therapy Treatment Other Other Manual Treatments MMT, Special testing PT-OP-T Assessment and Plan Start: 11/09/23 17:05 Freq: Status: Active Protocol: Document 11/19/23 11:15 DCW (Rec: 11/19/23 11:32 DCW [id number]) Physical Therapy Assessment Impairments Impairments Functional Activities, Functional Mobility,Pain,Soft Tissue Mobility,Strength Goals Two Impairment Severe hip pain with pivoting on planted right foot Fci Goal (LTG) Pt to demonstrate return to prior level of function by performing yard work with no instances of increased hip pain over the course of two weeks LTG Duration Met One Impairment Pt does not have an appropriate home exercise program Short Term Goal (STG) Pt to be independent and compliant with an appropriate HEP STG Duration Met Progress Towards Goals Progress Towards Goals Goals Met Assessment Summary Assessment Pt feels great overall, has not been having any increase in pain, even with dramatic increase in activity recently. Notes great understanding of HEP, regularly works out at local gym. Pt will do well to discharge from skilled PT to an independent HEP at this time. Physical Therapy Plan Frequency and Duration Frequency of Treatment 2x/Week Plan of Care Start Date 11/09/23 Plan of Care End Date 01/09/24 Therapeutic Interventions Therapeutic Interventions Home Exercise Program,Joint Mobilizations,Manual Therapy, Neuromuscular Re-education, Patient/Caregiver Education, Self-Care/Home Management,Soft Tissue Mobilization, Therapeutic Activities, Therapeutic Exercises Modalities Cold Pack/Ice Massage,Electric Stimulation,Hot Packs, Ultrasound Discharge Physical Therapy Discharge Reasons Goals Met Next Visit Focus/Plan Next Note Type Discharge Summary
== END 2023-11-25 08:12 | disposition home or self-care (01) ==
LOC: PHYS 11:15
PROVIDERS: Family Provider Family Medicine; PCP Family Medicine; Referring Provider Family Medicine; Visit Provider Family Medicine
DX: M16.11 Unilateral primary osteoarthritis, right hip (principal); M25.551 Pain in right hip; M25.651 Stiffness of right hip, not elsewhere classified
CPT/HCPCS: 97110; 97112; 97140; 97161

== ENCOUNTER → 2024-06-16 15:45 | Outpatient (CLI) | payer OTHER, SELFPAY ==
[2024-06-16 18:20] LABS: Prostate Specific Antigen < 0.064 ng/mL (0.10-4.00)
== END ==
PROVIDERS: Family Provider Family Medicine; PCP Family Medicine; Referring Provider Urology; Visit Provider Urology
DX: C61 Malignant neoplasm of prostate (principal)
CPT/HCPCS: 36415; 84153

== ENCOUNTER → 2025-01-24 09:10 | Outpatient (CLI) | payer OTHER, SELFPAY ==
[2025-01-24 10:18] LABS: Cholesterol 181 mg/dL (140-199); HDL Cholesterol 51 mg/dL (40-60); LDL Cholesterol Calculated 113 mg/dL (<100); Triglycerides 83 mg/dL (35-150)
[2025-01-24 10:51] LABS: Prostate Specific Antigen < 0.064 ng/mL (0.10-4.00)
== END ==
PROVIDERS: Urology; Family Provider Family Medicine; PCP Family Medicine; Referring Provider Family Medicine; Visit Provider Family Medicine
DX: C61 Malignant neoplasm of prostate (principal); E78.5 Hyperlipidemia, unspecified
CPT/HCPCS: 36415; 80061; 84153

== ENCOUNTER → 2025-01-27 07:54 | Outpatient (CLI) | payer OTHER, SELFPAY ==
--- NOTE | 2025-01-27 07:55 | DI.ECHO.S_ITS ---
[facility] +---------+ [facility] : : [id number] : : [place] : : [id number] : : Phone: [phone] Echocardiogram Report + + :Name: NANCY JIMENEZ Study Date: 01/27/2025 Height: 71 in : :Hospital ReadingLocation: Weight: 205 lb : : Gender: Male BSA: 2.1 m2 : :: 1950 Age: 74 yrs BP: 134/74 mmHg: :Reason For Study: MURMUR : :Ordering Physician: SAVAGE, : :ADELFO Performed By: Renaldo Fowler : :Referring: ADELFO WAN : + + Interpretation Summary Normal LV size and systolic function. LVEF is 55 to 60%. Biatrial enlargement. Prolapse of the posterior mitral valve leaflet is noted again. There is moderate mitral regurgitation. More severe mitral regurgitation cannot be completely ruled out. Mild pulmonary hypertension. Other findings as below. When compared to TTE dated 02/11/2023, there has been progression of atrial enlargement and pulmonary pressures. Procedure: A two-dimensional transthoracic echocardiogram with color flow and Doppler was performed. The study quality was technically good. Comparison is made with the echocardiogram of 02/11/2023. The patient was in normal sinus rhythm during the exam. Left Ventricle: The left ventricle is normal in size. Left ventricular wall thickness is mildly increased. There is no ventricular septal defect visualized. The ejection fraction is estimated to be 55-60%. There are no focal wall motion abnormalities. Diastolic parameters suggest probable normal left ventricular diastolic function and normal filling pressures. Right Ventricle: The right ventricle is mild to moderately dilated. The right ventricular systolic function is normal. Atria: The left atrium is severely dilated. The right atrium is moderate to severely dilated. There is no Doppler evidence for an atrial septal defect. Mitral Valve: The mitral valve leaflets appear moderately thickened, but open well. The mitral valve leaflets are moderately calcified. There is mild mitral annular calcification. There is prolapse of the posterior mitral valve leaflet(s). There is moderate mitral valve prolapse. There is moderate mitral regurgitation. The mitral regurgitant jet is eccentrically directed. Aortic Valve: The aortic valve is trileaflet. The aortic valve opens well. There is trace aortic regurgitation. Tricuspid Valve: The tricuspid valve leaflets are thin and pliable. There is trace tricuspid regurgitation. The right ventricular systolic pressure is estimated to be at least 34 mmHg based on an estimated right atrial pressure of 3 mm Hg. Pulmonic Valve: The pulmonic valve is not well visualized. There is no pulmonic valvular regurgitation. Great Vessels: The aortic root is mildly dilated. The ascending aorta is mildly enlarged. The pulmonary artery is normal size. The IVC is of normal diameter and collapses greater than 50% with a sniff. This suggests a low right atrial pressure of 3 mm Hg. Pericardium/ Pleura There is no pericardial effusion. There is no pleural effusion. MMode/2D Measurements & Calculations LVIDd: 6.0 cm LVOT diam: 2.5 cm LVIDs: 3.9 cm Ao root diam: 3.7 cm FS: 34.4 % asc Aorta Diam: 3.7 cm EPSS: 0.68 cm Ao Arch Diam (Prox Trans): 1.9 cm IVSd: 1.2 cm LVPWd: 1.1 cm LV wesley. diameter/BSA (cm/m^2): 2.8 LV sys. diameter/BSA (cm/m^2): 1.9 LA A2 area: 38.3 cm2 RA long axis: 6.1 cm LA A4 area: 28.8 cm2 RA area: 23.8 cm2 LA length (vol): 6.3 cm RA vol: 79.4 ml LA vol: 148.4 ml RA : 37.2 ml/m2 LA vol index: 69.6 ml/m2 IVC diam: 1.8 cm RVD1 (basal): 4.4 cm RVD2 (mid): 3.6 cm TAPSE: 2.8 cm Doppler Measurements & Calculations Ao V2 max: 99.9 cm/sec LVOT Max Aleks: 71.6 cm/sec Ao V2 mean: 68.4 cm/sec LV V1 max P.1 mmHg Ao max P.0 mmHg LV V1 VTI: 14.7 cm Ao mean P.1 mmHg YELENA(I,D): 2.9 cm2 Ao V2 VTI: 24.2 cm EYLENA(V,D): 3.4 cm2 sev ratio: 0.61 YELENA indexed to BSA (cm^2/m^2): 1.4 MV E max aleks: 124.2 cm/sec TR max aleks: 278.4 cm/sec MV A max aleks: 53.2 cm/sec TR max P.0 mmHg MV E/A: 2.3 PA V2 max: 72.1 cm/sec Med Peak E' Aleks: 7.5 cm/sec PA V2 mean: 50.7 cm/sec E/E' med: 16.6 PA mean P.1 mmHg Lat Peak E' Aleks: 7.0 cm/sec PA pr(Accel): 51.6 mmHg E/E' lat: 17.8 E/e' average: 17.2 MV dec time: 0.23 sec SV(LVOT): 69.9 ml Reading Physician:05:52 PM
== END ==
PROVIDERS: Family Provider Family Medicine; PCP Family Medicine; Referring Provider Family Medicine; Visit Provider Family Medicine
DX: R01.1 Cardiac murmur, unspecified (principal); E78.5 Hyperlipidemia, unspecified; I51.7 Cardiomegaly; I34.1 Nonrheumatic mitral (valve) prolapse; I34.0 Nonrheumatic mitral (valve) insufficiency; I27.20 Pulmonary hypertension, unspecified
CPT/HCPCS: 93306